=== PATIENT | female | born 1960 | race Caucasian/White ===

== ENCOUNTER 2022-08-07 18:54 | Emergency (ER) | payer MEDICARE, BC, SELFPAY ==
[2022-08-07 19:08] VITALS: BP 148/84; PULSE 79; RESP 18; TEMP 36.6; O2SAT 99; BMI 32.3
--- NOTE | 2022-08-07 19:11 | ED_ITS ---
HPI - General Adult General Time Seen by Provider: 19:11 Date Seen: 08/07/22 Chief complaint: Flank Pain Stated complaint: kidney infection, back pain Time Seen by Provider: 08/07/22 18:58 Source: patient and RN notes reviewed Mode of arrival: ambulatory Limitations: no limitations History of Present Illness HPI narrative: Patient is a 61-year-old female ambulatory in the ED with concern of possible kidney infection. She has had a urostomy for years now after failed repair of her bladder from injury during a hysterectomy. She has had prior pyelonephritis from infection. She admits she had some back pain last week but thought it was just from not sleeping well, helping her who is convalescing from a stroke. She has not noted any fevers. Two days ago she noted ana blood in her bag. She could not get anybody to cover her shift yesterday or get off work. She really pushed fluids and really did not notice any hematuria yesterday. There is just a small amount of blood in the bag this morning. She did not have as much back her back pain increased and is on the left side. No nausea vomiting, no fevers. She does not have a history of kidney stones. Related Data Home Medications Medication Instructions Recorded Confirmed ostomy supplies (Stomahesive 08/07/22 08/07/22 Protective Powder) Previous Rx's Medication Instructions Recorded cephalexin 500 mg capsule 500 mg PO TID #21 caps 08/07/22 Allergies Allergy/AdvReac Type Severity Reaction Status Date / Time methocarbamol AdvReac Intolerance Verified 08/07/22 19:14 Review of Systems Status of ROS: Reports: 10 or more systems reviewed and unremarkable except as noted in History and below [facility] Medical History (Updated 08/07/22 @ 21:01 by Kylie Short MD) Anemia, unspecified Anemia, unspecified Breast cancer Complex endometrial hyperplasia Hydronephrosis of right kidney Incarcerated ventral hernia Multiple sclerosis Parastomal hernia of ileal conduit Recurrent incisional hernia with incarceration Vesicovaginal fistula Surgical History (Updated 08/07/22 @ 20:27 by Rafi Ramirez RN) History of appendectomy History of bladder repair surgery History of cholecystectomy History of dilation and curettage History of total abdominal hysterectomy Status post ileal conduit Social History Smoking Status: Never smoker Do you use any of these nicotine containing products: None Second hand tobacco smoke exposure: No How often do you have a drink containing alcohol: never How often do you have six or more drinks on one occasion: Never AUDIT-C Alcohol total score: 0 Non-prescribed substance use: denies use Exam Const: Vital Signs, click to edit/add: Vital Signs - 24 hr 08/07/22 19:08 Temperature 97.8 F Pulse Rate [Right Pulse Oximeter] 79 Respiratory Rate 18 Blood Pressure [Ri ght Upper Arm] 148/84 H Pulse Oximetry 99 Oxygen Delivery Me thod Room Air Common normals: no apparent distress, oriented x3, no limitations, healthy appearing, alert and well nourished General appearance: cooperative, comfortable and well kempt Nutritional appearance: obese HENMT: Common normals: normocephalic, head/scalp atraumatic, hearing grossly normal bilaterally and external ears normal Head and scalp: normocephalic and atraumatic External ear: external ears normal Eye: Common normals: PERRL, EOMs intact bilaterally, conjunctivae normal and no scleral icterus Conjunctiva: conjunctiva(e) normal Pupil: PERRL Neck & C-Spine: Common normals: full ROM, no lymphadenopathy, supple, no meningeal signs, no JVD and thyroid normal Thyroid: thyroid normal Chest: Common normals: inspection of chest normal Resp: Common normals: normal respiratory effort, no retractions, no use of accessory muscles and clear to auscultation bilaterally Auscultation: clear to auscultation bilaterally Cardio: Common normals: no JVD, regular rate, regular rhythm, S1 normal heart sound, S2 normal heart sound, no gallops, no clicks and no murmurs Rate: regular rate Rhythm: regular rhythm Heart sounds: S1 normal and S2 normal GI: Common normals: Normal to inspection, nondistended, normoactive bowel sounds present (Has urostomy bag, no abnormality of skin surrounding this), soft to palpation, non-tender, no hepatosplenomegaly and no masses Palpation: soft and no hepatosplenomegaly : Common normals: no CVA tenderness Bladder/kidney exam: no CVA tenderness Back & Pelvis: Common normals: no CVA tenderness, thoracic and lumbar spine normal to inspection and no thoracic nor lumbar tenderness Neuro: Common normals: oriented x3 and gait normal Sensorium/orientation: alert Meningeal signs: no meningeal signs Speech: speech normal Psych: Appearance: well kempt Course Course Hospital Course: Will obtain lab work, CT abdomen pelvis noncontrast. Reviewed with patient that there are certainly other etiologies of hematuria. Given her duration of her back pain, does make me think more strongly about such abnormalities as kidney stones. We will attempt to get as clean a urine as possible. Reevaluation(s) Reevaluation #1: Reviewed the CT findings of the right distal stone. She right now is feeling more left-sided back pain but admits that she is actually felt generalized back pain and back pain on both sides. She most definitely is not had a fever. We did review that the stone certainly can be responsible for hematuria. Her white count, C-reactive protein and procalcitonin are all normal. Thus I would not recommend antibiotics at this point but she does understand that infection is a complication of this. She will need to follow up with Urology. Time: 20:52 Vital Signs Vital signs: Initial Vital Signs Temperature 97.8 F 08/07/22 19:08 Temperature Source Temporal Artery Scan 08/07/22 19:08 Pulse Rate 79 08/07/22 19:08 Respiratory Rate 18 08/07/22 19:08 Blood Pressure 148/84 H 08/07/22 19:08 Blood Pressure Mean 105 08/07/22 19:08 Blood Pressure Position Sitting 08/07/22 19:08 Pulse Oximetry 99 08/07/22 19:08 Oxygen Delivery Method 08/07/22 19:08 Vital Signs Temperature 97.8 F 08/07/22 19:08 Pulse Rate 79 08/07/22 19:08 Respiratory Rate 18 08/07/22 19:08 Blood Pressure 148/84 H 08/07/22 19:08 Pulse Oximetry 99 08/07/22 19:08 Oxygen Delivery Method 08/07/22 19:08 Temperature 97.8 F 08/07/22 19:08 Pulse Rate 79 08/07/22 19:08 Respiratory Rate 18 08/07/22 19:08 Blood Pressure 148/84 H 08/07/22 19:08 Pulse Oximetry 99 08/07/22 19:08 Oxygen Delivery Method 08/07/22 19:08 Medical Decision Making Lab Data Lab results reviewed: Yes I reviewed the patient's lab results Labs: Lab Results 10/07/2108/07/22 08/07/22 Range/Units 19:25 19:35 19:35 WBC 6.76 (4.50-11.00) K/uL RBC 4.85 (4.00-5.20) m/uL Hgb 14.4 (12.0-16.0) gm/dL Hct 43.6 (33.0-51.0) % MCV 90 (80-100) fL MCH 30 (26-34) pg MCHC 33 (32-36) gm/dL RDW Coeff of Katina 12.9 (11.5-15.5) % Plt Count 281 (140-440) K/uL Neut % (Auto) 52.6 (42.0-72.0) % Lymph % (Auto) 30.6 (20-44) % [place] % (Auto) 12.0 H (0.0-11.0) % Eos % (Auto) 4.0 (0.0-7.0) % Baso % (Auto) 0.4 (0.0-3.0) % Neut # (Auto) 3.55 (1.7-7.0) K/uL Lymph # (Auto) 2.07 (0.90-2.90) K/uL [place] # (Auto) 0.80 (0.00-0.90) K/UL Eos # (Auto) 0.27 (0.00-0.50) K/uL Baso # (Auto) 0.03 (0.00-0.30) K/uL Abs Immat Gran (auto) 0.03 (0.00-0.30) K/uL Sodium 139 (135-149) mmol/L Potassium 3.9 (3.6-5.1) mmol/L Chloride 109 (96-114) mmol/L Carbon Dioxide 22 (20-32) mmol/L BUN 15 (7-30) mg/dL Creatinine 0.7 (0.5-1.5) mg/dL Estimated Creat Clear 54.61 Estimated GFR 98 ml/min Glucose 117 H (60-115) mg/dL Lactate (0.5-1.9) mmol/L Calcium 9.7 (8.4-10.6) mg/dL C-Reactive Protein < 0.5 L (0.5-1.0) mg/dL Procalcitonin < 0.03 L (<0.50) ng/mL Urine Color Yellow (Yellow) Urine Appearance Cloudy A (Clear) Urine pH 7.5 (5.0-8.5) Ur Specific [place] 1.015 (1.000-1.030) Urine Protein Trace A (Negative) Urine Glucose (UA) Negative (Negative) Urine Ketones Negative (Negative) Urine Blood 2+ A (Negative) Urine Nitrite Negative (Negative) Urine Bilirubin Negative (Negative) Urine Urobilinogen 0.2 (0.2-1.0) Ur Leukocyte Esterase 3+ A (Negative) Urine RBC 10-25 A (0-2) Urine WBC 10-25 A (0-5) Ur Squamous Epith Cells None (None-Few) Urine Bacteria Many A (None) 08/07/22 Range/Units 19:35 WBC (4.50-11.00) K/uL RBC (4.00-5.20) m/uL Hgb (12.0-16.0) gm/dL Hct (33.0-51.0) % MCV (80-100) fL MCH (26-34) pg MCHC (32-36) gm/dL RDW Coeff of [place] (11.5-15.5) % Plt Count (140-440) K/uL Neut % (Auto) (42.0-72.0) % Lymph % (Auto) (20-44) % [place] % (Auto) (0.0-11.0) % Eos % (Auto) (0.0-7.0) % Baso % (Auto) (0.0-3.0) % Neut # (Auto) (1.7-7.0) K/uL Lymph # (Auto) (0.90-2.90) K/uL [place] # (Auto) (0.00-0.90) K/UL Eos # (Auto) (0.00-0.50) K/uL Baso # (Auto) (0.00-0.30) K/uL Abs Immat Gran (auto) (0.00-0.30) K/uL Sodium (135-149) mmol/L Potassium (3.6-5.1) mmol/L Chloride (96-114) mmol/L Carbon Dioxide (20-32) mmol/L BUN (7-30) mg/dL Creatinine (0.5-1.5) mg/dL Estimated Creat Clear Estimated GFR ml/min Glucose (60-115) mg/dL Lactate 1.4 (0.5-1.9) mmol/L Calcium (8.4-10.6) mg/dL C-Reactive Protein (0.5-1.0) mg/dL Procalcitonin (<0.50) ng/mL Urine Color (Yellow) Urine Appearance (Clear) Urine pH (5.0-8.5) Ur Specific [place] (1.000-1.030) Urine Protein (Negative) Urine Glucose (UA) (Negative) Urine Ketones (Negative) Urine Blood (Negative) Urine Nitrite (Negative) Urine Bilirubin (Negative) Urine Urobilinogen (0.2-1.0) Ur Leukocyte Esterase (Negative) Urine RBC (0-2) Urine WBC (0-5) Ur Squamous Epith Cells (None-Few) Urine Bacteria (None) Imaging Data CT scan - abdomen: Attestation: I have reviewed the pertinent imaging results. Radiologist's impression: Patient: MARIBEL HOLLEY Facility:?[facility] Patient ID:?[id number] Site Patient ID:?[id number]. Site :?[id number] Study:?CT Abdomen/Pelvis W/O-08/07/2022 7:47:13 PM Ordering Physician:Jameson Espinal Final Report: INDICATION: LT FLANK PAIN, BACK PAIN, HEMATURIA, UROSTOMY Indication: Left flank pain. Back pain. Hematuria. Technique: CT of the abdomen and pelvis. No intravenous contrast. Coronal/sagittal reconstruction images. Comparison: 07/29/2017. Findings: Lung bases: There is no pleural or pericardial effusion. The heart size is normal. Linear scarring or atelectasis in the lingular segment, left lower lobe, and right middle lobe. No basilar pneumothorax or suspicious pulmonary nodule. Abdomen/pelvis: There is no solid hepatic mass. Low-dense hepatic lesions are most likely benign cysts. These were present previously. Cholecystectomy. Non cirrhotic liver morphology. Spleen size is normal. No adrenal mass. There is right hydronephrosis and hydroureter. There is a stone present in the right ureter, image 93, series 2, which measures 2 millimeters. The patient is post cystectomy with ileal conduit urinary diversion. There is no postoperative fluid collection in the pelvis. There is diverticulosis present in the colon. No findings for diverticulitis. There is a ventral wall abdominal hernia containing transverse colon. No enteric compromise. The fascial defect measures 4.2 cm in transverse dimensions. There is also a right lateral hernia, measuring 3.7 cm on image 108, series 2, associated with the ileostomy. There is no inguinal or pelvic sidewall lymphadenopathy. Uterus appears surgically absent. The retroperitoneum and gastrohepatic ligament are normal. There is no left-sided urolith identified. Right hydronephrosis and hydroureter, along with a delayed nephrogram, was present on the prior CT from 07/29/2017. There are no suspicious bone lesions. Vertebral body heights are maintained. Alignment is preserved sagittal reconstruction images. Impression: 1. Postoperative changes of a cystectomy with ileal conduit urinary diversion. 2. There is right hydronephrosis and hydroureter, which is stable when compared with previous. The findings suggest a ureteroileal anastomotic stricture. Majority of postoperative strictures are benign. 3. There is an associated right distal urolith, noted on image 93, series 2. There is no perinephric fat stranding or fluid collection. 4. No evidence of a small bowel or colonic obstruction. 5. Abdominal wall hernias as above. No enteric compromise. 6. Reference: Neema et al. [employer] 202; 41: 249-267. Dictated by Devon Flanagan MD @ 08/07/2022 8:26:08 PM Please note that all CT scans at this facility use dose modulation, iterative reconstruction, and/or weight-based dosing when appropriate to reduce radiation dose to as low as reasonably achievable. Dictated by: Devon Flanagan MD @ 08/07/2022 20:26:16 (Electronic Signature) Critical Care Time Critical Care Time Critical Care Time: No Discharge Plan Discharge Clinical Impression: Urolith Patient Disposition: Home, Self-Care Condition: Stable Instructions: Kidney Stones (ED), Renal Colic (ED) Additional Instructions: Need to continue pushing fluids. Can use Tylenol and/or ibuprofen for any pain management. Should she develop fever, have uncontrolled pain, started vomiting, do need to be re-evaluated. Need to get scheduled back with Urology, need to call them tomorrow. There were incidental findings of abdominal wall hernias. You should follow-up with General surgery to discuss these at some point, this is not certainly emergent at this time. We will cover you with Keflex given that you have altered urinary anatomy, urologist can decide whether or not you should stay on this. We did culture urine. Activity Level: Activity as Tolerated Prescriptions: New cephalexin 500 mg capsule 500 mg PO TID Qty: 21 0RF No Action (DME) ostomy supplies [Stomahesive Protective] Powder TOPICAL Label Comments: APPLY TOPICALLY TO AFFECTED AREA/S DIRECTED Follow Up/Referrals: Mic Bolton MD [Primary Care Provider] - Stand Alone Forms: [employer] Info Instructions
--- NOTE | 2022-08-07 19:22 | CRLHL7_ITS ---
For Patients: As a result of the 21st Century Cures Act, medical imaging exams and procedure reports are released immediately into your electronic medical record. You may view this report before your referring provider. If you have questions, please contact your health care provider. INDICATION: LT FLANK PAIN, BACK PAIN, HEMATURIA, UROSTOMY Indication: Left flank pain. Back pain. Hematuria. Technique: CT of the abdomen and pelvis. No intravenous contrast. Coronal/sagittal reconstruction images. Comparison: 07/29/2017. Findings: Lung bases: There is no pleural or pericardial effusion. The heart size is normal. Linear scarring or atelectasis in the lingular segment, left lower lobe, and right middle lobe. No basilar pneumothorax or suspicious pulmonary nodule. Abdomen/pelvis: There is no solid hepatic mass. Low-dense hepatic lesions are most likely benign cysts. These were present previously. Cholecystectomy. Non cirrhotic liver morphology. Spleen size is normal. No adrenal mass. There is right hydronephrosis and hydroureter. There is a stone present in the right ureter, image 93, series 2, which measures 2 millimeters. The patient is post cystectomy with ileal conduit urinary diversion. There is no postoperative fluid collection in the pelvis. There is diverticulosis present in the colon. No findings for diverticulitis. There is a ventral wall abdominal hernia containing transverse colon. No enteric compromise. The fascial defect measures 4.2 cm in transverse dimensions. There is also a right lateral hernia, measuring 3.7 cm on image 108, series 2, associated with the ileostomy. There is no inguinal or pelvic sidewall lymphadenopathy. Uterus appears surgically absent. The retroperitoneum and gastrohepatic ligament are normal. There is no left-sided urolith identified. Right hydronephrosis and hydroureter, along with a delayed nephrogram, was present on the prior CT from 07/29/2017. There are no suspicious bone lesions. Vertebral body heights are maintained. Alignment is preserved sagittal reconstruction images. Impression: 1. Postoperative changes of a cystectomy with ileal conduit urinary diversion. 2. There is right hydronephrosis and hydroureter, which is stable when compared with previous. The findings suggest a ureteroileal anastomotic stricture. Majority of postoperative strictures are benign. 3. There is an associated right distal urolith, noted on image 93, series 2. There is no perinephric fat stranding or fluid collection. 4. No evidence of a small bowel or colonic obstruction. 5. Abdominal wall hernias as above. No enteric compromise. 6. Reference: Neema et al. [employer] 202; 41: 249-267. Dictated by Devon Flanagan MD @ 08/07/2022 8:26:08 PM Please note that all CT scans at this facility use dose modulation, iterative reconstruction, and/or weight-based dosing when appropriate to reduce radiation dose to as low as reasonably achievable. Dictated by: Devon Flanagan MD @ 08/07/2022 20:26:16 (Electronically Signed)
--- OUTSIDE RECORDS SUMMARY | 2022-08-07 19:54 | XMS_ITS | Clinical Summary ---
:1960 Author Organization [facility] [address] Care Team Providers Name Role Phone Mic Bolton MD Primary Care Provider [phone] Allergies Active Allergy Reactions Severity Noted Date Comments Hydromorphone Apnea 03/29/2011 Became overly sedated with IV dilaudi d, needed narcan. Use c autiously in small doses, and she tolerates it fi ne Methocarbamol Intolerance-Can't Take, High 05/31/2019 Met hocarbamol-Robaxin Other - Describe In Comment Field Medications Medication Sig Dispensed Refills Start Date End Date Status cholecalciferol Take 1 capsule by 0 06/01/2010 Active (VITAMIN D) 1,000 unit mouth once daily. capsule multivitamin (MVI) Take 1 tablet by 0 Active tablet mouth once daily. calcium carbonate Take 1 tablet by 0 11/14/2019 Active (TUMS) 200 mg calcium mouth 3 times (500 mg) chewable daily with meals. tablet Stomahesive Protective APPLY TOPICALLY 28 g 10 08/06/2021 Active powdIndications: TO AFFECTED Presence of urostomy AREA/S (HC) DIRECTED Ostomy Supplies FOR HOME USE 2 Each 12 08/06/2021 Active miscIndications: NIGHT BAG Presence of urostomy (HC) Ostomy Supplies USE DIRECTED 10 Each 12 08/06/2021 Active (Convatec Night Drain Container) miscIndications: Presence of urostomy (HC) Ostomy Supplies USE DIRECTED 10 Each 12 08/06/2021 Active miscIndications: Presence of urostomy (HC) Active Problems Problem Noted Date Recurrent incisional hernia with incarceration 018 Hydronephrosis of right kidney 07/31/2017 Impaired fasting glucose 02/18/2014 Status post ileal conduit 02/04/2013 ACP (advance care planning) 03/14/2011 Overview: Formatting of this note is dif ferent from the original. Patient has identified Health Care Agent (s): Yes Add Health Care Agents: Yes Health Care Agent(s): Primary Health Care Agent: Devon Majano Relationship: Secondary Health Care Agent: Asuncion Laird Relationship: Mother Patient has Advance Care Plan Documents (Health Care Directive, POLST): No, Declined. Patient has identified Specific Treatmen t Preferences: Yes Specific Treatment Preferences: a.) Code Status: CPR/Attempt Resuscitation Breast cancer 10/19/2009 Overview: ) BREAST, RIGHT, LUMPECTOMY: 1. Infiltrating ductal carcinoma charact erized by: a. Christiano grade: II of III b. Maximum size: 0.8 cm c. Associated DCIS: Present (solid type) d. Angiolymphatic invasion: Absent 2. Invasive carcinoma and DCIS extend to less than 0.1 cm of the specimen, not true surgical, superior-po sterior margin 12/2008 MS (multiple sclerosis) 10/15/2008 Overview: Mostly balance and fatigue concerns Parastomal hernia of ileal conduit Incarcerated ventral hernia Resolved Problems Problem Noted Date Resolved Date Stress 05/31/2019 06/09/2021 Presence of urostomy 08/28/2015 06/09/2021 Situational stress 02/04/2013 06/09/2021 Respiratory distress 03/09/2011 02/04/2013 Hyponatremia 03/09/2011 02/04/2013 Anemia, unspecified 05/24/2010 02/04/2013 Vesicovaginal fistula 04/05/2010 08/23/2011 Complex endometrial hyperplasia 01/12/2010 03/03/20 Overview: Noted in polyp at d and c Vaginal bleeding 11/24/2009 03/03/2010 Encounters Date Type Specialty Care Team Description 08/01/2022 Telephone Mic Bolton, Ref erral (physical therapy MD referral) 07/29/2022 Office Visit Mic Bolton Kne e Pain/problem (Right MD knee pain on an d off for a year. ) 07/29/2022 Travel from Last 3 Months Immunizations Name Administration Dates Next Due AMB INFLUENZA, IIV4 (AGE=>6MOS) MDV 08/07/2018 (Flu Clinic Only) AMB Influenza, IIV3 (Age >=3 08/16/2011, 08/04/2009 years)(Flu Clinic Only) AMB Influenza, IIV4 PF (=>6 mos 08/20/2020, 08/09/2019, 07/30 Flulaval,Fluzone Fluarix)(Flu Clinic Only) COVID-19 vaccine (Real Life Plus 07/29/2022 30mcg/0.3mL) 12YO+ BIVALENT BOOSTER PF, MDV COVID-19 vaccine (Real Life Plus 02/19/2021, 01/30/2021 30mcg/0.3mL) PF, MDV Influenza A (H1N1), Inactivated 10/20/2009 Influenza A (H1N1), Inactivated (Age 1210/20/2009 >=3 Years) Influenza, IIV3 (Age 6-35 mos) 08/16/2011 Influenza, IIV3 (Age >=3 years) 08/13/2013, 09/10/2012, 02/2010, 08/04/2009, 08/22/2008, 08/22/2007, 09/08/2006, 09/28/2005 Influenza, IIV4 07/19/2022, 08/23/2021, 08/22/2017, 08/11/2016, 08/12/2015, 08/13/2014 Td (Age >=7 Years) 09/09/2006 Td, Preservative Free (age >= 7 06/10/2021 Years) Tdap 02/22/2011, 01/16/2007 Zoster (Shingrix-RZV, recombinant) 12/21/2020, 10/08/2020 Family History Medical History Relation Name Comments Diabetes Brother Good Health Brother Heart attack Brother fatal [place] at 53 Dementia Father Diabetes Mother Other Mother fibromyalgia Anesthesia Problem No Family History Cancer-breast No Family History Cancer-colon No Family History Relation Name Status Comments Brother Father Alive Mother Alive Social History Tobacco Use Types Packs/Day Years Used Date Never Smoker Smokeless Tobacco: Never Used Tobacco Cessation: Counseling Given: Yes Alcohol Use Standard Drinks/Week Comments Yes 0 (1 standard drink = 0.6 oz pure alcoho l) average week 6 drinks Alcohol Habits Answer Date Recorded How often do you have a drink containing 4 or more times a w [place] 02/22/2019 alcohol? How many drinks containing alcohol do you have 1 or 2 02/22/2019 on a typical day when you are drinking? How often do you have six or more drinks on one Never 02/22/2019 occasion? Comment: average week 6 drinks 03/08/2019 Sex Assigned at Date Recorded Not on file COVID-19 Exposure Response Date Recorded In the last 10 days, have you been in contact with No / Unsu re 07/29/2022 11:34 AM CDT someone who was confirmed or suspected to have Coronavirus/COVID-19? 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 Oxygen Saturation 97% 07/29/2022 11:43 AM CDT Inhaled Oxygen Concentration - - Weight 91.8 kg (202 lb 6.4 oz) 07/29/2022 11:43 AM CDT Height 167 cm (5' 5.75) 07/29/2022 11:43 AM CDT Body Mass Index 32.92 07/29/2022 11:43 AM CDT Plan of Treatment Health Maintenance Due Date Last Done Comments Pneumococcal series for age 19-64 1965 (1 - PCV) CT Colonography for age 45-75 2004 Depression screening for age 12+ 06/09/2022 06/09/2021, 03/2019, 06/04/2019, Additional history exists Fecal testing non-DNA 06/16/2022 06/16/2021, 06/04/2019 (FIT,FOBT,iFOBT) for age 45-75 Mammogram for age 45-75 08/13/2022 08/13/2021, 07/17/2020, 05/31/2019, Additional history exists BMI (ht and wt on same day) for 07/29/2023 07/29/2022, 1001/2021, age 18+ 06/01/2021, Additional history exists Lipids for age 45-75 06/09/2026 06/09/2021, 06/04/2019, 04/27/2018, Additional history exists Tetanus booster 06/10/2031 06/10/2021, 02/22/2011, 01/16/2007, Additional history exists Tdap Completed 02/22/2011, 01/16/2007 Hepatitis C screening for age Completed 03/25/2016 18-79 Zoster (shingles) series for age Completed 12/21/2020, 07/2020 50+ Influenza for age 50-64 Completed 07/19/2022, 08/23/2021, 08/20/2020, Additional history exists COVID-19 vaccine series Completed 07/29/2022, 03/18/2022, 09/02/2021, Additional history exists Medical Devices Implanted Type Area Kitchen Aide Device Shelf Model / Identifier Expiration Date Ser ial / Lot Ovitex 1s Permanent Polymer 16x20 Abdomen 05/29/2018 [id number] / Implanted: Qty: 1 on 08/31/2017 by Caleb Ge MD at [facility] / [id number] Description: OVITEX 1S PERMANENT POLYMER 16X20 Mesh Ventral [id number] - [id number] Abdomen [employer] [id number] / Implanted: Qty: 1 on 03/13/2019 by Caleb Ge MD at [facility] / [id number] Results Not on filefrom Last 3 Months Insurance Payer Benefit Plan / Subscriber ID Effective Dates Phone Addre ss Type Group MEDICARE PART A MEDICARE PART A [id number] 2001-Prese ATTN: CLAIMS - HB USE ONLY HB ONLY nt [address] [place] [address] MEDICARE PART B MEDICARE PART B [id number] 2007-Presen ATTN: CLAIMS - HB USE ONLY HB ONLY t [address] [place] [address] [place] BL[place] [id number] 2016-Presen [address] [address] [place] [address] [place], [place] [id number] BLUE [place]OSS BL[place]OSS [id number] 2016-Presen [address] [address] [place] [place], [place] [id number] Advance Directives Documents on File Type Date Recorded Patient Director Of Emergency Nursing Explanati on Healthcare Directive 03/16/2011 Latest Code Status on File Code Status Date Activated Date Inactivated Comments Full Code 03/13/2019 5:58 AM 03/15/2019 1:51 PM Code Status Discussion: Not Discussed Full Code 08/31/2017 9:43 PM 09/02/2017 3:53 PM Code Status Discussion: Not Discussed Full Code 08/31/2017 10:33 AM 08/31/2017 9:21 PM Code Status Discussion: Not Discussed Care Teams Pin Chaser Relationship Specialty Start Date End Date Mci Bolton MD PCP - General Family Practice 10/15/15 [address] [place] [address]
[2022-08-07 19:58] LABS: Lactate* 1.4 mmol/L (0.5-1.9)
[2022-08-07 19:59] LABS: Basophils Absolute Auto 0.03 K/uL (0.00-0.30); Basophils Percent Auto 0.4 % (0.0-3.0); Eosinophils Absolute Auto 0.27 K/uL (0.00-0.50); Hematocrit 43.6 % (33.0-51.0); Hemoglobin* 14.4 gm/dL (12.0-16.0); Immature Granulocytes Abs Auto 0.03 K/uL (0.00-0.30); Lymphocytes Absolute Auto 2.07 K/uL (0.90-2.90); Lymphocytes Percent Auto 30.6 % (20-44); Mean Corpuscular HGB Conc 33 gm/dL (32-36); Mean Corpuscular Hemoglobin 30 pg (26-34); Mean Corpuscular Volume 90 fL (80-100); Neutrophils Absolute Auto 3.55 K/uL (1.7-7.0); Neutrophils Percent Auto 52.6 % (42.0-72.0); Platelet Count* 281 K/uL (140-440); RDW Coefficient of Variation % 12.9 % (11.5-15.5); Red Blood Count 4.85 m/uL (4.00-5.20); White Blood Count* 6.76 K/uL (4.50-11.00)
[2022-08-07 20:01] LABS: Slide Review Reflex No
[2022-08-07 20:14] LABS: Chloride* 109 mmol/L (96-114); Potassium* 3.9 mmol/L (3.6-5.1); Sodium* 139 mmol/L (135-149)
[2022-08-07 20:17] LABS: Creatinine* 0.7 mg/dL (0.5-1.5); Est. Creatinine Clearance* 54.61; Estimated Glomerular Filt Rate 98 ml/min
[2022-08-07 20:18] LABS: Blood Urea Nitrogen* 15 mg/dL (7-30); Calcium* 9.7 mg/dL (8.4-10.6); Carbon Dioxide* 22 mmol/L (20-32); Glucose* 117 mg/dL (60-115)
[2022-08-07 20:24] LABS: C Reactive Protein* < 0.5 mg/dL (0.5-1.0)
[2022-08-07 20:38] LABS: Procalcitonin* < 0.03 ng/mL (<0.50)
[2022-08-07 20:40] LABS: Appearance Urine Cloudy (Clear); Bilirubin Urine Negative (Negative); Blood Urine 2+ (Negative); Glucose Urine Negative (Negative); Ketones Urine Negative (Negative); Leukocyte Esterase Urine 3+ (Negative); Nitrite Urine Negative (Negative); Protein Urine Trace (Negative); Specific Gravity Urine 1.015 (1.000-1.030); Urobilinogen Urine 0.2 (0.2-1.0); pH Urine 7.5 (5.0-8.5)
[2022-08-07 20:42] LABS: Color Urine Yellow (Yellow)
[2022-08-07 20:47] LABS: Bacteria Urine Many
[2022-08-07] MEDS: cephALEXin 500 MG CAPSULE PO (21:08)
[2022-08-07 21:13] VITALS: BP 135/74; PULSE 74; RESP 18; TEMP 36.6; O2SAT 99
[2022-08-07 21:16] VITALS: BP 135/74; PULSE 74; RESP 18; TEMP 36.6
--- OUTSIDE RECORDS SUMMARY | 2022-08-10 13:03 | XMS_ITS | Clinical Summary ---
:1960 Author Organization [facility] [place] [address] Care Team Providers Name Role Phone Mic Bolton MD Primary Care Provider [phone] Allergies Active Allergy Reactions Severity Noted Date [...] 07/30 Flulaval,Fluzone Fluarix)(Flu Clinic Only) COVID-19 vaccine (Xiant 07/29/2022 30mcg/0.3mL) 12YO+ BIVALENT BOOSTER PF, MDV COVID-19 vaccine (Xiant 02/19/2021, 01/30/2021 30mcg/0.3mL) PF, MDV Influenza A [...] Good Health Brother Heart attack Brother fatal [place] at 53 Dementia Father Diabetes Mother Other [...] containing 4 or more times a w [place] 02/22/2019 alcohol? 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 Shelf Model / Identifier Expiration Date Ser ial / Lot Ovitex 1s Permanent Polymer 16x20 Abdomen 05/29/2018 [id number] / Implanted: Qty: 1 on 08/31/2017 by Caleb Ge MD at [facility] / [id number] Description: OVITEX 1S PERMANENT POLYMER 16X20 Mesh Ventral [id number] Ph[address]ix [address] - [id number] Abdomen [employer] [id number] / Implanted: Qty: 1 on 03/13/2019 by Caleb Ge MD at [facility] / [id number] Results Not on filefrom Last 3 Months Insurance Payer Benefit Plan / Subscriber ID Effective Dates Phone Addre ss Type Group MEDICARE PART A MEDICARE PART A [id number] 2001-Prese ATTN: CLAIMS - HB USE ONLY HB ONLY nt [address] [place] [address] MEDICARE PART B MEDICARE PART B [id number] 2007-Presen ATTN: CLAIMS - HB USE ONLY HB ONLY t [address] [place] [address] [place] [id number] 2016-Presen [address] [address] [place] [address] [place] [id number] [employer] [place] [id number] 2016-[place] [address] [address] [place] [address] [place] [id number] Advance Directives Documents on File Type Date Recorded Patient Manager Background Explanati on Healthcare Directive 03/16/2011 Latest Code Status on File Code Status Date Activated Date Inactivated Comments Full Code 03/13/2019 5:58 AM 03/15/2019 1:51 PM Code Status Discussion: Not Discussed Full Code 08/31/2017 9:43 PM 09/02/2017 3:53 PM Code Status Discussion: Not Discussed Full Code 08/31/2017 10:33 AM 08/31/2017 9:21 PM Code Status Discussion: Not Discussed Care Teams Torch Solderer Relationship Specialty Start Date End Date Mic Bolton MD PCP - General Family Practice 10/15/15 [address] [place] [address]
== END 2022-08-07 21:16 | disposition home or self-care (01) ==
PROVIDERS: Emergency Provider Family Medicine; PCP Family Medicine
DX: N21.8 Other lower urinary tract calculus (principal); Z90.6 Acquired absence of other parts of urinary tract
CPT/HCPCS: 36415; 74176; 80048; 81001; 83605; 84145; 85025; 86140; 87086; 87186; 99284; A9270

== ENCOUNTER 2022-08-27 06:31 | Emergency (ER) | payer MEDICARE, BC, SELFPAY ==
[2022-08-27 06:41] VITALS: BP 142/89; PULSE 79; RESP 16; TEMP 36.6; O2SAT 99; BMI 32.3
--- NOTE | 2022-08-27 07:18 | CRLHL7_ITS ---
For Patients: As a result of the Century Cures Act, medical imaging exams and procedure reports are released immediately into your electronic medical record. You may view this report before your referring provider. If you have questions, please contact your health care provider. Indication: Back pain hematuria history of urolithiasis Technique: Noncontrast CT abdomen and pelvis Comparison: CT abdomen and pelvis 08/07/2022 Findings: Heart size is normal. There is no pericardial effusion. Lingular and basilar mild atelectasis. Spleen pancreas adrenal glands unremarkable cholecystectomy unenhanced liver unremarkable too small to characterize low-attenuation lesion the right hepatic lobe. There is a cortical scarring within the right kidney small nonobstructing right lower pole renal calculus. There is m mild right hydronephrosis and hydroureter this is moderately improved from the prior study. Right ureteral stones the is not seen on the current study. Postoperative changes of cystectomy with ileal conduit urinary diversion. There is a ventral wall abdominal hernia associated with the ileostomy there is no bowel obstruction. There is also right lateral abdominal wall large hernia without enteric compromise there is an additional ventral hernia containing bowel as well without obstruction There is diverticulosis No suspicious bony lesions are seen. Impression: 1. Mild right hydronephrosis and hydroureter this is moderately improved from the prior study without obstructing stone seen. There is some minimal urothelial thickening there is no significant perinephric stranding. Findings could be correlated for possible UTI. 2. Cystectomy with ileal conduit urinary diversion. There is ventral abdominal wall hernia associated with the ileostomy. There are 2 additional hernias without obstruction seen. Please note that all CT scans at this facility use dose modulation, iterative reconstruction, and/or weight-based dosing when appropriate to reduce radiation dose to as low as reasonably achievable. Dictated by Anaya Pena MD @ 08/27/2022 9:19:31 AM (Electronically Signed)
--- NOTE | 2022-08-27 07:28 | ED_ITS ---
HPI - Female Genitourinary General Date Seen: 08/27/22 <Mulugeta Holden MD - Last Filed: 08/28/22 08:23> Chief complaint: Urogenital Problems, Female <Mulugeta Holden MD - Last Filed: 08/28/22 08:23> Stated complaint: Blood in urine and pain <Mulugeta Holden MD - Last Filed: 08/28/22 08:23> Source: patient <Mulugeta Holden MD - Last Filed: 08/28/22 08:23> Mode of arrival: ambulatory <Mulugeta Holden MD - Last Filed: 08/28/22 08:23> Limitations: no limitations <Mulugeta Holden MD - Last Filed: 08/28/22 08:23> History of Present Illness HPI Narrative: Patient is the 61-year-old female who presents here ambulatory to the emergency department for concern of a possible kidney infection, was seen here in early July, for much the same, hematuria, and at that time was initially placed on Keflex, she was found to have a distal ureteral stone of 2 mm. This was thought to be possibly causing her hematuria she was placed initially on Keflex, this was switched to ciprofloxacin after she grew Klebsiella that was resistant to Keflex. She is having some lower back discomfort, no nausea no vomiting no fevers no chills no abdominal pain. She has a history of a previous urostomy and surgical a cup of her ureters to this. She did follow-up with Dr. Iyer from Urology, he ordered a CT scan to be done on September 01. For follow-up. <Mulugeta Holden MD - Last Filed: 08/28/22 08:23> Related Data Home medications: Home Medications Medication Instructions Recorded Confirmed ostomy supplies (Stomahesive 08/07/22 08/27/22 Protective Powder) Previous Rx's Medication Instructions Recorded cephalexin 500 mg capsule 500 mg PO TID #21 caps 08/07/22 cephalexin 500 mg capsule 500 mg PO TID 7 days #21 caps 08/27/22 <Mulugeta Holden MD - Last Filed: 08/28/22 08:23> Allergies/Adverse reactions: Allergies Allergy/AdvReac Type Severity Reaction Status Date / Time methocarbamol AdvReac Intolerance Verified 08/27/22 06:43 <Mulugeta Holden MD - Last Filed: 08/28/22 08:23> Review of Systems Status of ROS: Reports: 10 or more systems reviewed and unremarkable except as noted in History and below <Mulugeta Holden MD - Last Filed: 08/28/22 08:23> [facility] Medical History: Medical History Anemia, unspecified Anemia, unspecified Breast cancer Complex endometrial hyperplasia Hydronephrosis of right kidney Incarcerated ventral hernia Multiple sclerosis Parastomal hernia of ileal conduit Recurrent incisional hernia with incarceration Vesicovaginal fistula <Mulugeta Holden MD - Last Filed: 08/28/22 08:23> Surgical History: Surgical History History of appendectomy History of bladder repair surgery History of cholecystectomy History of dilation and curettage History of total abdominal hysterectomy Status post ileal conduit <Mulugeta Holden MD - Last Filed: 08/28/22 08:23> Social History: Social History Smoking Status: Never smoker Do you use any of these nicotine containing products: None Second hand tobacco smoke exposure: No How often do you have a drink containing alcohol: never How often do you have six or more drinks on one occasion: Never AUDIT-C Alcohol total score: 0 Non-prescribed substance use: denies use <Mulugeta Holden MD - Last Filed: 08/28/22 08:23> Exam Narrative: Exam Narrative: Patient is seen in room 3 she is in no apparent distress very nice lady, low back shows no discomfort on palpation, she is able to bend forward with her hands to the floor, extension lateral flexion are all normal, or abdomen soft there is no guarding, there is indeed reddish tinged urine in her bag. <Mulugeta Holden MD - Last Filed: 08/28/22 08:23> Const: Vital Signs, click to edit/add: Vital Signs - 24 hr 08/27/22 09:00 Pulse Rate [Left F emoral] 72 Respiratory Rate 16 Blood Pressure [Le ft Upper Arm] 136/91 H Pulse Oximetry 97 Oxygen Delivery Me thod Room Air <Mulugeta Holden MD - Last Filed: 08/28/22 08:23> Vital Signs, click to edit/add: Vital Signs - 24 hr 08/27/22 09:00 Pulse Rate [Left F emoral] 72 Respiratory Rate 16 Blood Pressure [Le ft Upper Arm] 136/91 H Pulse Oximetry 97 Oxygen Delivery Me thod Room Air <Goyo Bond MD - Last Filed: 08/27/22 10:48> Documenting provider has reviewed patient's vital signs: yes <Mulugeta Holden MD - Last Filed: 08/28/22 08:23> Course Vital Signs Vital signs: Initial Vital Signs Temperature 97.9 F 08/27/22 06:41 Temperature Source Temporal Artery Scan 08/27/22 06:41 Pulse Rate 79 08/27/22 06:41 Pulse Rhythm 08/27/22 06:41 Respiratory Rate 16 08/27/22 06:41 Blood Pressure 142/89 H 08/27/22 06:41 Blood Pressure Mean 106 08/27/22 06:41 Blood Pressure Position Sitting 08/27/22 06:41 Pulse Oximetry 99 08/27/22 06:41 Oxygen Delivery Method 08/27/22 06:41 Vital Signs Temperature 97.9 F 08/27/22 06:41 Pulse Rate 79 08/27/22 06:41 Respiratory Rate 16 08/27/22 06:41 Blood Pressure 142/89 H 08/27/22 06:41 Pulse Oximetry 99 08/27/22 06:41 Oxygen Delivery Method 08/27/22 06:41 Temperature 97.9 F 08/27/22 06:41 Pulse Rate 72 08/27/22 09:00 Respiratory Rate 16 08/27/22 09:00 Blood Pressure 136/91 H 08/27/22 09:00 Pulse Oximetry 97 08/27/22 09:00 Oxygen Delivery Method 08/27/22 09:00 <Mulugeta Holden MD - Last Filed: 08/28/22 08:23> Initial Vital Signs Temperature 97.9 F 08/27/22 06:41 Temperature Source Temporal Artery Scan 08/27/22 06:41 Pulse Rate 79 08/27/22 06:41 Pulse Rhythm 08/27/22 06:41 Respiratory Rate 16 08/27/22 06:41 Blood Pressure 142/89 H 08/27/22 06:41 Blood Pressure Mean 106 08/27/22 06:41 Blood Pressure Position Sitting 08/27/22 06:41 Pulse Oximetry 99 08/27/22 06:41 Oxygen Delivery Method 08/27/22 06:41 Vital Signs Temperature 97.9 F 08/27/22 06:41 Pulse Rate 79 08/27/22 06:41 Respiratory Rate 16 08/27/22 06:41 Blood Pressure 142/89 H 08/27/22 06:41 Pulse Oximetry 99 08/27/22 06:41 Oxygen Delivery Method 08/27/22 06:41 Temperature 97.9 F 08/27/22 06:41 Pulse Rate 72 08/27/22 09:00 Respiratory Rate 16 08/27/22 09:00 Blood Pressure 136/91 H 08/27/22 09:00 Pulse Oximetry 97 08/27/22 09:00 Oxygen Delivery Method 08/27/22 09:00 <Goyo Bond MD - Last Filed: 08/27/22 10:48> MDM - Female Genitourinary MDM Narrative Medical decision making narrative: During the evaluation of this patient I considered multiple differential diagnosis including life-threatening differentials which are appendicitis, aorti c aneurysm, mesenteric ischemia, bowel perforation, ectopic , volvulus and bowel obstruction, other differential diagnosis include but are not limited to inflammatory bowel disease, cholecystitis, pancreatitis, hepatitis, gastritis, GERD, diverticulitis, peptic ulcer disease, pyelonephritis/UTI, renal colic/stone, pelvic inflammatory disease, cervicitis, endometritis, intrauterine , dysfunctional uterine bleeding, ovarian cyst/torsion, spontaneous as well as other etiologies I think it would be reasonable to do the CT now instead of waiting to September 01, I will check her urine, we will give her some Tylenol for discomfort, she may need coverage with ciprofloxacin again. Will sign her over to the oncoming ER physician also. <Mulugeta Holden MD - Last Filed: 08/28/22 08:23> During the evaluation of this patient I considered multiple differential diagnosis including life-threatening differentials which are appendicitis, aortic aneurysm, mesenteric ischemia, bowel perforation, ectopic , volvulus and bowel obstruction, other differential diagnosis include but are not limited to inflammatory bowel disease, cholecystitis, pancreatitis, hepatitis, gastritis, GERD, diverticulitis, peptic ulcer disease, pyelonephritis/UTI, renal colic/stone, pelvic inflammatory disease, cervicitis, endometritis, intrauterine , dysfunctional uterine bleeding, ovarian cyst/torsion, spontaneous as well as other etiologies I think it would be reasonable to do the CT now instead of waiting to September 01, I will check her urine, we will give her some Tylenol for discomfort, she may need coverage with ciprofloxacin again. Will sign her over to the oncoming ER physician also. CT imaging returns with some evidence of hydroureter hydronephrosis but no evidence of obstructing stone. The patient does have changes in her urinalysis suspicious for infection and received a prescription for cephalexin. She has follow-up appointment arranged with her urologist this coming week. - Dr. Dagoberto Bond <Goyo Bond MD - Last Filed: 08/27/22 10:48> Lab Data Labs: Lab Results 08/27/22 Range/Units 07:20 Urine Color Red A (Yellow) Urine Appearance Cloudy A (Clear) Urine pH 6.0 (5.0-8.5) Ur Specific [place] 1.020 (1.000-1.030) Urine Protein 2+ A (Negative) Urine Glucose (UA) Negative (Negative) Urine Ketones Negative (Negative) Urine Blood 3+ A (Negative) Urine Nitrite Negative (Negative) Urine Bilirubin Negative (Negative) Urine Urobilinogen 0.2 (0.2-1.0) Ur Leukocyte Esterase Trace A (Negative) Urine RBC >100 A (0-2) Urine WBC 10-25 A (0-5) Ur Squamous Epith Cells Few (None-Few) Urine Bacteria Many A (None) <Mulugeta Holden MD - Last Filed: 08/28/22 08:23> Lab Results 08/27/22 Range/Units 07:20 Urine Color Red A (Yellow) Urine Appearance Cloudy A (Clear) Urine pH 6.0 (5.0-8.5) Ur Specific [place] 1.020 (1.000-1.030) Urine Protein 2+ A (Negative) Urine Glucose (UA) Negative (Negative) Urine Ketones Negative (Negative) Urine Blood 3+ A (Negative) Urine Nitrite Negative (Negative) Urine Bilirubin Negative (Negative) Urine Urobilinogen 0.2 (0.2-1.0) Ur Leukocyte Esterase Trace A (Negative) Urine RBC >100 A (0-2) Urine WBC 10-25 A (0-5) Ur Squamous Epith Cells Few (None-Few) Urine Bacteria Many A (None) <Goyo Bond MD - Last Filed: 08/27/22 10:48> Imaging Data CT scan - abdomen: Radiologist's impression: 1. Mild right hydronephrosis and hydroureter this is moderately improved from the prior study without obstructing stone seen. There is some minimal urothelial thickening there is no significant perinephric stranding. Findings could be correlated for possible UTI. 2. Cystectomy with ileal conduit urinary diversion. There is ventral abdominal wall hernia associated with the ileostomy. There are 2 additional hernias without obstruction seen. <Goyo Bond MD - Last Filed: 08/27/22 10:48> Discharge Plan Discharge Clinical Impression: Urinary tract infection <Mulugeta Holden MD - Last Filed: 08/28/22 08:23> Patient Disposition: Home, Self-Care <Mulugeta Holden MD - Last Filed: 08/28/22 08:23> Condition: Stable <Mulugeta Holden MD - Last Filed: 08/28/22 08:23> Instructions: Urinary Tract Infection in Women (DC) <Mulugeta Holden MD - Last Filed: 08/28/22 08:23> Additional Instructions: Take medication as prescribed. Follow up with urologist as scheduled or needed. Return if worsening. <Mulugeta Holden MD - Last Filed: 08/28/22 08:23> Prescriptions: New cephalexin 500 mg capsule 500 mg PO TID 7 Days Qty: 21 0RF No Action (DME) ostomy supplies [Stomahesive Protective] Powder TOPICAL Label Comments: APPLY TOPICALLY TO AFFECTED AREA/S DIRECTED cephalexin 500 mg capsule 500 mg PO TID Qty: 21 0RF <Mulugeta Holden MD - Last Filed: 08/28/22 08:23> Follow Up/Referrals: Mic Bolton MD [Primary Care Provider] - <Mulugeta Holden MD - Last Filed: 08/28/22 08:23> Stand Alone Forms: MyHealth Info Instructions <Mulugeta Holden MD - Last Filed: 08/28/22 08:23>
--- OUTSIDE RECORDS SUMMARY | 2022-08-27 07:30 | XMS_ITS ---
:1960 Author Care Team Providers Name Role Phone Herminio Iyer Primary Care Provider Unavailable Allergies Code Code System Name Reaction Severity Status Onset 020736 RxNorm Dilaudid ? ? Active ? 6845 RxNorm Methocarbamol ? ? Active ? Medications Name Status Start Date Stop Date ? ? cephalexin 500 mg capsule Active ? Not av ailable TAKE ONE CAPSULE BY MOUTH THREE TIMES DAILY Stomahesive Protective Powder Active ? No t available APPLY TOPICALLY TO AFFECTED AREA/S DIRECTED Problems None recorded. Procedures Date Name Performed by ? 04/30/2018 Colonoscopy Information not avai lable ? Total Hysterectomy Information not avai lable ? Cholecystectomy Information not avai lable ? Lumpectomy of Breast Information not arnol ilable 08/10/2022 CT, Abdomen + Pelvis, W/o Contrast Allin a [facility] [address] [place] [address] (Work Place) Results Lab Results None recorded. Past Encounters 08/10/2022 Kidney Stone Herminio Iyer MD: [address] [facility] [place] [address], Ph. Social History Tobacco Smoking Status Never Smoker Vaccine List None recorded. Plan of Care Reminders Provider Appointments None recorded. ? ? Lab None recorded. ? ? Referral None recorded. ? ? Procedures None recorded. ? ? Surgeries None recorded. ? ? Imaging None recorded. ? ? Vitals Height Weight BMI 5 ft 7.5 in 202 lbs 31.2 kg/m2
--- OUTSIDE RECORDS SUMMARY | 2022-08-27 07:30 | XMS_ITS | Clinical Summary ---
:1960 Author Organization [facility] [place] [address] Care Team Providers Name Role Phone Mic Bolton MD Primary Care Provider [phone] Allergies Active Allergy Reactions Severity Noted Date [...] Encounters Date Type Specialty Care Team Description 08/19/2022 Ancillary Procedure 08/19/2022 Travel 08/11/2022 Telephone Mic Bolton Testing ([place] VID-19 ) MD Sharmin 08/07/2022 Orders Only Scanner <No scans attac hed> 08/01/2022 Telephone Mic Bolton Referral (p hysical MD Sharmin therapy referra l) 07/29/2022 Office Visit Mic Bolton Knee Pain/p roblem (Right MD Sharmin knee pain on an d off for a year. ) 07/29/2022 Travel from Last 3 Months Immunizations Name Administration Dates Next Due AMB INFLUENZA, IIV4 (AGE=>6MOS) MDV 08/07/2018 (Flu Clinic Only) AMB Influenza, IIV3 (Age >=3 08/16/2011, 08/04/2009 years)(Flu Clinic Only) AMB Influenza, IIV4 PF (=>6 mos 08/20/2020, 08/09/2019, 07/30 Flulaval,Fluzone Fluarix)(Flu Clinic Only) COVID-19 vaccine (KeepGo-BioNTech 07/29/2022 30mcg/0.3mL) 12YO+ BIVALENT BOOSTER PF, MDV COVID-19 vaccine (KeepGo-BioNTech 02/19/2021, 01/30/2021 30mcg/0.3mL) PF, MDV Influenza A [...] Good Health Brother Heart attack Brother fatal [place] at 53 Dementia Father Diabetes Mother Other [...] containing 4 or more times a w augustine 02/22/2019 alcohol? How many drinks containing alcohol [...] in contact with No / Unsu re 08/19/2022 3:25 PM CDT someone who was confirmed or suspected [...] CDT Respiratory Rate 16 11/09/2020 10:12 AM SPECIAL DEPUTY SHERIFF Oxygen Saturation 97% 07/29/2022 11:43 AM CDT Inhaled Oxygen Concentration - - Weight 91.8 kg (202 lb 6.4 oz) 07/29/2022 11:43 AM CDT Height 167 cm (5' 5.75) 07/29/2022 11:43 AM CDT Body Mass Index 32.92 07/29/2022 11:43 AM CDT Plan of Treatment Upcoming Encounters Date Type Specialty Care Team Description 09/01/2022 Ancillary Procedure Health Maintenance Due Date Last Done Comments Pneumococcal series for age 19-64 1965 (1 - PCV) CT Colonography for age 45-75 2004 Depression screening for age 12+ 06/09/2022 06/09/2021, 03/2019, 06/04/2019, Additional history exists Fecal testing non-DNA 06/16/2022 06/16/2021, 06/04/2019 (FIT,FOBT,iFOBT) for age 45-75 BMI (ht and wt on same day) for 07/29/2023 07/29/2022, 01/2021, age 18+ 06/01/2021, Additional history exists Mammogram for age 45-75 08/19/2023 08/19/2022, 08/13/2021, 07/17/2020, Additional history exists Lipids for age 45-75 [...] history exists Medical Devices Implanted Type Area Metal Temperer Device Shelf Model / Identifier Expiration Date Ser ial / Lot Ovitex 1s Permanent Polymer 16x20 Abdomen 05/29/2018 [id number] / Implanted: Qty: 1 on 08/31/2017 by Caleb Ge MD at [facility] / [id number] Description: OVITEX 1S PERMANENT POLYMER 16X20 Mesh Ventral [id number] [address] - [id number] Abdomen [employer] [id number] / Implanted: Qty: 1 on 03/13/2019 by Caleb Ge MD at [facility] / [id number] Procedures Procedure Name Priority Date/Time Associated Comments Diagnosis XR MAMMO BILAT Routine 08/19/2022 3:48 PM Routine check-up Res ults for this SCREENING CDT procedure are i n the results section. SCAN-CT INTERPRETATION 08/07/2022 12:00 AM CDT from Last 3 Months Results XR MAMMO BILAT SCREENING (08/19/2022 3:48 PM CDT) Anatomical Region Laterality Modality BREASTS, Breast Left, Breast Right Bilateral Mammo graphy Specimen (Source) Anatomical Location Collection Method / Collectio n Time Received Time / Laterality Volume Impressions 08/22/2022 2:01 PM CDT ??There is no radiographic evidence for malignancy. ??Recommend annual mammograms. MAMMOGRAM ASSESSMENT: ??ACR 1 Negative PATIENTS: You will also receive a letter with your examination results in an easy to read format. ??If you have qu estions about your results, please contact your referring provider. Narrative 08/22/2022 2:01 PM CDT For Patients: As a result of the Cures Act, medical imaging exams and procedure reports are released immediately into your electronic medical record. You may view this report before your referring provider. If you have questions, please contact [facility] provider. XR MAMMO BILAT SCREENING [[id number]] CLINICAL HISTORY: ??This is an asymptoma tic 61 y.o. patient. INDICATION FOR EXAM: Mammogram Screening . TECHNIQUE: CC & MLO views were obtained. ??This study was evaluated with the assistance of Computer-Aided Detecti on. COMPARISON FILM: Yes 08/13/21 [employer] 07/17/20 [employer] FINDINGS: ??The breasts are almost entir remi fatty. There are no dominant masses, suspicious micro calcifications or areas of architectural distortion. Mic Bolton MD MAMMO SCAN-CT INTERPRETATION (08/07/2022 12:00 AM CDT) Narrative This result has an attachment that is no t available. Scanner OTHER from Last 3 Months Insurance Payer Benefit Plan / Subscriber ID Effective Dates Phone Addre ss Type Group MEDICARE PART A MEDICARE PART A [id number] 2001-Prese ATTN: CLAIMS - HB USE ONLY HB ONLY nt [address] [place] [address] MEDICARE PART B MEDICARE PART B [id number] 2007-Presen ATTN: CLAIMS - HB USE ONLY HB ONLY t [address] [place] [address] BLUE CROSS MR BLUE CROSS [id number] 2016-Presen [address] [address] [place] [id number] BLUE CROSS BLUE CROSS [id number] 2016-[place]en [address] [address] [place] [id number] Advance Directives Documents on File Type Date 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
--- OUTSIDE RECORDS SUMMARY | 2022-08-27 07:30 | XMS_ITS | Encounter Summary ---
:1960 Author Reason for Visit Kidney Stones Assessment and Plan 1. Kidney stone 1. Right ureteral stone - reviewed CT scan (08/07/22) images - Ri ght - 2 mm stone in distal ureter / anastomosis - currently asymptomatic - discussed options - conservative manag ement vs surgery - observe for now (encourage fluids) - F/U in [address] scan (stone christianne h) in [facility] ([facility]) - if stone is still present - will need Right percutaneous nephrostomy with antegrade ureteroscopy with laser lithotripsy and stent placement ? CT, abdomen + pelvis, w/o contrast - pls call pt to schedule CT Scan prior to appointment with Dr. Iyer on 09/05 ank you Discussion Note Telephone - 8 minutes Patient educational handouts: No information available. Plan of Care Reminders Provider Appointments Established Phone Visit 20 09/05/2022 Alessandra Iyer MD 3:40PM Lab None recorded. ? ? Referral None recorded. ? ? Procedures None recorded. ? ? Surgeries None recorded. ? ? Imaging CT, Abdomen + Pelvis, W/o 08/10/2022 [facility] Contrast Medications Name Start Date ? ? cephalexin 500 mg capsule ? TAKE ONE CAPSULE BY MOUTH THREE TIMES DAILY Stomahesive Protective Powder ? APPLY TOPICALLY TO AFFECTED AREA/S DIRECTED Medications Administered None recorded. Vitals Height Weight BMI 5 ft 7.5 in 202 lbs 31.2 kg/m2 Results Lab Results None recorded. Allergies Code Code System Name Reaction Severity Onset 915390 RxNorm Dilaudid ? ? ? 6845 RxNorm Methocarbamol ? ? ? Problems None recorded. Procedures Date Name Performed by ? 04/30/2018 Colonoscopy Information not avai lable ? Total Hysterectomy Information not avai lable ? Cholecystectomy Information not avai lable ? Lumpectomy of Breast Information not arnol ilable 08/10/2022 CT, Abdomen + Pelvis, W/o Contrast [facility] [address] [place] [address] (Work Place) Vaccine List None recorded. Social History Tobacco Smoking Status Never Smoker What was the date of your most recent tobacco screening? 09/2022 What is your level of alcohol consumption? Occasional Do you or have you ever used any other forms of tobacco or n icotine? N Do you use any illicit or recreational drugs? N Functional Status Unknown. Past Encounters 08/10/2022 Kidney Stone Herminio Iyer MD: [id number] [place] [address], Ph. History of Present Illness Note: <div>61 yo female with H/O MS and breast cancer, developed a vesicovaginal fistula after SHAILESH/BSO for endometrial hyperplasia (01/12/10) - complicated by bladder laceration and excessive bleeding. </div><div>- s/p unsuccessful vesicovaginal repair (04/05/10) with Dr. Cuellar</div><div>- s/p Ileal conduit urinary diversion (03/07/11) with Dr. Siddiqui and Dr. Cuellar& lt;/div><div>- s/p Right ureteral stent placement and perc neph tube placement (08/01/17) </div><div>- neph tube removed (08/09/17)</div><div>- s/p RAL stoma hernia repair (08/31/17). </div><div> </div><div>08/02/21 - She presents for evaluation of possible UTI. She noted old blood 10 days ago and bright red blood yesterday. She also notes lower back pain (L > R). She denies fevers or chills.</div><div>
</div><div>08/10/22 - She presents for follow-up on kidneystones. She reports mild Right back discomfort over the past several weeks - developed gross hematuria on 08/07/22. CT scan (08/07/22) revealed 2 mm stone at Right ureteroileal anastomosis). Her hematuria has resolved. She denies flank pain currently - no nausea. She is completing a 7 day course of Keflex. No F/C/S.</div><div> &l t;/div><div>CT Urogram (09/14/15) - no stones, renal masses, or filling defects - + mild scarring in Right kidney. </div><div>CT scan (12/26/17) - new Left hydronephrosis - no stones. </div><div>CT Urogram (08/30/21) - no kidney stones or hydronephrosis</div><div>CT scan (08/07/22) - Right hydronephrosis - 2 mm stone (at ureteroileal anastomosis) - Left - no stones</div><div> </div><div>Renal U/S (04/27/17) - no hydronephrosis or renal mass </div><div>Renal U/S (01/15/18) - no hydronephrosis or renal mass </div><div>
</div><div>This visit was conducted by telephone due to the COVID-19 crisis. Prior to conducting our telephone visit, the patient was apprised of the risks, benefits and alternatives to telephone visits including but not limited to poor audio quality, interrupted visits due to technological limitations, delays in medical evaluation and treatment due to deficiencies or failures of equipment, failure of security protocols resulting in a breach of privacy of personal medical information and a lack of access to complete medical records resulting in not fully informed decisions. Also, because of the COVID-19 pandemic, it was not possible for the patient tosign the privacy regulations, HIPAA release and assignment of benefits forms. The patient was given the opportunity to ask questions about these policies and gave verbal acknowledgement and approval ofthese policies as well as to hold this meeting by telephone. Lastly, the patient agreed to allowing their medication history to be pulled from a national pharmacy database to facilitate and coordinate their care.</div> Review of Systems ? Comprehensive General Adult ROS Reported By: Patient Constitutional: Constitutional: no fever, no chills Eyes: Eyes: no dry eyes Endocrine: Endocrine: no fatigue Cardiovascular: Cardiovascular: no chest crystal n Integumentary: Skin: no rashes Respiratory: Respiratory: no wheezing Physical Exam ? Notes: <div>no exam - phone visit</ div>
[2022-08-27] MEDS: ACETAMINOPHEN 500 MG TABLET 1000 MG PO (07:42)
[2022-08-27 07:43] LABS: Appearance Urine Cloudy (Clear); Bilirubin Urine Negative (Negative); Blood Urine 3+ (Negative); Color Urine Red (Yellow); Glucose Urine Negative (Negative); Ketones Urine Negative (Negative); Leukocyte Esterase Urine Trace (Negative); Nitrite Urine Negative (Negative); Protein Urine 2+ (Negative); Urobilinogen Urine 0.2 (0.2-1.0)
--- NOTE | 2022-08-27 07:44 | ED.NURSE ---
collected the urine sample and sent to lab. patient drained out the urostomy bag 150cc of heidi urine.
[2022-08-27 07:54] LABS: Bacteria Urine Many; RBC Urine >100 (0-2); Squamous Epithelial Cell Urine Few (None-Few)
[2022-08-27 09:00] VITALS: BP 136/91; PULSE 72; RESP 16; O2SAT 97
== END 2022-08-27 11:00 | disposition home or self-care (01) ==
PROVIDERS: Emergency Provider Family Medicine; PCP Family Medicine
DX: N39.0 Urinary tract infection, site not specified (principal)
CPT/HCPCS: 74176; 81001; 87086; 87186; 99283; 99284; A9270

== ENCOUNTER 2023-07-27 13:27 | Outpatient (CLI) | payer MEDICARE, SELFPAY ==
--- NOTE | 2023-07-27 13:45 | CRLHL7_ITS ---
For Patients: As a result of the Century Cures Act, medical imaging exams and procedure reports are released immediately into your electronic medical record. You may view this report before your referring provider. If you have questions, please contact your health care provider. INDICATION: Kidney lesion. COMPARISON: CT abdomen and pelvis January 21, 2010, May 26, 2010, July 29, 2017 and August 27, 2022; ultrasound examination of the kidneys 09/12/2017. TECHNIQUE: Precontrast T1 and T2 weighted imaging; T2 haste imaging; diffusion weighted imaging; in and out of phase imaging; postcontrast imaging including subtraction; 17 cc of dotarem contrast was injected. FINDINGS: Diffuse fatty infiltration of the liver. Small sub cm cyst segment 5 of the liver. No focal hepatic or splenic pathology. No pancreatic pathology. Status post cholecystectomy. No adrenal pathology. Mild right-sided hydronephrosis. Multiple ventral hernias identified. Status post cystectomy with ileal loop urinary diversion. Scarring identified involving the upper pole right kidney. IMPRESSION: 1. Scarring upper pole right kidney. 2. Diffuse fatty infiltration of the liver. 3. Status post cholecystectomy. 4. Mild right-sided hydronephrosis. 5. Multiple ventral hernias identified. Dictated by Ace Singh MD @ 07/31/2023 2:10:46 PM (Electronically Signed)
== END 2023-07-27 13:28 | disposition home or self-care (01) ==
LOC: MRI 13:29
PROVIDERS: PCP Family Medicine; Visit Provider Urology
DX: N28.9 Disorder of kidney and ureter, unspecified (principal); K76.0 Fatty (change of) liver, not elsewhere classified; N13.30 Unspecified hydronephrosis
CPT/HCPCS: 74183; A9575